=== PATIENT | female | born 2000 ===

== ENCOUNTER 2023-02-28 12:43 | Outpatient (REF) | payer MEDICAID, SELFPAY ==
--- NOTE | 2023-02-28 11:40 | PAPFT_PTH ---
PATIENT: Shraddha Geronimo LOC: [facility] U#:[id number] AGE/SX: 23/F ROOM: RE02/28/[address]: PATSY JASMINE : 2000 BED: DIS: 02/28/2023 SPEC #: [id number] RECD: 02/28/23 18:18 STATUS: CURT REQ #: [id number] GLEN: 02/28/23 11:[address]: Patsy Jasmine DEPT: [facility] Cytology RECD BY: Dotty Muñoz Tissues: 1 - CX/ENDOCX FOR PAP SMEARS Procedures: PAP THIN PREP/[facility] Screening Comments: [id number] (CHLAMYDIA/GC)
--- OUTSIDE RECORDS SUMMARY | 2023-02-28 12:46 | XMS_ITS ---
Author Name Bailey Curtis Address [address], [place] [id number] Organization [facility] Address [address], [place] [id number] Care Team Providers Care Compliance Analyst Name Role Phone Bailey Curtis Unavailable [phone] PROBLEMS Unknown Problems ALLERGIES No Information ENCOUNTERS Encounter Location Date Diagnosis [facility] [address], [place] [id number] May, Encounter for other administrative examinations Z02.89 IMMUNIZATIONS No Known Immunizations SOCIAL HISTORY Never Assessed REASON FOR REFERRAL FUNCTIONAL STATUS PLAN OF CARE VITAL SIGNS MEDICATIONS Unknown Medications PROCEDURES Procedure Date Ordered Result Body Site OCD Urine Drug Screen (collection only) June 04, 2022 RESULTS Name Result Date Reference Range OCD URINE COLLECTION 2022-06-04 REASON FOR VISIT OCC C Insurance Providers Health Insurance Type Health Plan Insurance Address Health Plan Insurance Phone Health Plan Insurance Name Health Plan Coverage Dates Member ID Patient Relationship to Subscriber Patient Address Patient Phone Patient Name Patient Date of Subscriber ID Subscriber Name Subscriber Date of Group No [employer] [address] [address] [facility] [id number] [employer] self Shraddha Smart [id number]
[2023-03-01 10:01] LABS: Hepatitis C Ab w Rflx HCV PCR Negative (Negative); Syphilis Serology (RPR) Negative (Negative)
[2023-03-01 10:40] LABS: HIV-1/2 Ag & Ab Screen Negative (Negative)
[2023-03-01 12:07] LABS: Chlamydia Result Negative (Negative); GC Result Negative (Negative)
== END 2023-02-28 12:44 | disposition home or self-care (01) ==
LOC: NCHCN 12:43
PROVIDERS: PCP Nurse Practitioner Family; Visit Provider Nurse Practitioner Family
DX: Z11.3 Encounter for screening for infections with a predominantly sexual mode of transmission (principal); Z11.4 Encounter for screening for human immunodeficiency virus [HIV]; Z11.59 Encounter for screening for other viral diseases; Z12.4 Encounter for screening for malignant neoplasm of cervix
CPT/HCPCS: 86803; 87389; 87491; 87591; 88142; 86592

== ENCOUNTER 2023-03-09 12:37 | Outpatient (REF) | payer MEDICAID, SELFPAY ==
[2023-03-09 13:47] LABS: Abs Immature Grans 0.02 10^3/uL (0.0-0.06); Absolute Basophil Count 0.07 10^3/uL (0.0-0.2); Absolute Eosinophil Count 0.17 10^3/uL (0.0-0.7); Absolute Lymphocyte Count 2.55 10^3/uL (1.2-3.4); Absolute Monocyte Count 0.72 10^3/uL (0.1-0.8); Absolute Neutrophil Count 5.95 10^3/uL (1.2-6.7); Basophils % 0.7; Eosinophils % 1.8; HCT 41.1 % (36.0-46.0); Immature Grans % 0.2; Lymphocytes % 26.9; MCH 26.2 pg (27.0-33.0); MCHC 31.6 % (32.0-36.0); MCV 83 fL (80-95); MPV 9.7 fL (8.0-11.0); Monocytes % 7.6; Neutrophils % 62.8; Platelet Count 369 10^3/uL (130-400); RBC 4.97 10^6/uL (3.93-5.22); RDW 12.7 % (11.7-14.6); RDW-SD 38.5 fL; WBC 9.48 10^3/uL (4.4-10.8)
[2023-03-09 14:18] LABS: Hemoglobin A1C 5.5 % (<5.7)
[2023-03-09 14:45] LABS: ALT 22 U/L (14-59); AST 15 U/L (15-37); Albumin 3.6 g/dL (3.4-5.0); Alkaline Phosphatase 71 U/L (46-116); Anion Gap 6.8 mmol/L (3-11); BUN 8 mg/dL (7-18); Bilirubin, Total 0.4 mg/dL (0.2-1.0); CO2 28.2 mmol/L (21.0-32.0); CREATININE 0.8 mg/dL (0.55-1.02); Calcium 8.9 mg/dL (8.5-10.1); Calculated LDL 78 mg/dL (<100); Chloride 103 mmol/L (98-107); Cholesterol 137 mg/dL (<200); Estimated GFR 105.45 (mL/min/1.73m2); Glucose 73 mg/dL (74-106); HDL Cholesterol 48 mg/dL (40-60); Potassium 4.1 mmol/L (3.5-5.1); Sodium 138 mmol/L (136-145); TSH 0.39 uIU/mL (0.36-3.74); Total Protein 7.1 g/dL (6.4-8.2); Triglyceride 56 mg/dL (<150)
[2023-03-09 15:03] LABS: Vitamin D 25 Total 27.9 ng/mL (30-100)
== END 2023-03-09 12:38 | disposition home or self-care (01) ==
LOC: NCHCN 12:37
PROVIDERS: PCP Nurse Practitioner Family; Visit Provider Registered Nurse
DX: F31.89 Other bipolar disorder (principal); Z13.1 Encounter for screening for diabetes mellitus; Z79.899 Other long term (current) drug therapy; Z13.220 Encounter for screening for lipoid disorders
CPT/HCPCS: 80053; 80061; 82306; 83036; 84443; 85025